=== PATIENT | male | born 1945 | race Caucasian/White ===

== ENCOUNTER → 2016-06-26 | Outpatient (CLI) | payer MEDICARE, OTHER ==
[~2016-06-26] MED LIST: ALLOPURINOL300 MG PO; AMOXICILLIN500 MG PO; ASPIRIN EC81 MG PO; COLACE100 MG PO; DILAUDID 2MG(HYD2 MG PO; LOVENOX 4040 MG/0.4 SUB-Q; MIRALAX17 GM PO; NAPROSYN500 MG PO; OXYCONTIN EXTEN10 MG PO; PRINIVIL10 MG PO; ROXICODONE 5MG (5 MG PO; TYLENOL EXTRA500 MG PO; ULTRAM50 MG PO; VALIUM5 MG PO; XARELTO10 MG PO; ZYLOPRIM100 MG PO
== END | disposition disaster alternative care site (69) ==
LOC: GRAD 10:23
DX: M19.071 Primary osteoarthritis, right ankle and foot (principal); M25.571 Pain in right ankle and joints of right foot

== ENCOUNTER 2016-09-08 10:00 | Inpatient (IN) | payer MEDICARE, OTHER ==
[~2016-09-08] VITALS: Ht 180.3 cm; Wt 134.9 kg
--- NOTE | ~2016-09-08 | DS ---
PATIENT'S NAME: TOM POLK [facility] [place] AGE: 71 Y [address] 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 SECONDARY DIAGNOSES: History of atrial fibrillation, obstructive sleep apnea, obesity, history of gout, hyperlipidemia. PROCEDURE: The patient had a right total ankle arthroplasty done by Dr. Warren on September 30, 2016 and a gastrocnemius recession. HISTORY: The patient is a 71-year-old male who presents to the office with advanced right ankle degenerative joint disease and associated severely compromised activities of daily living. The patient has decided to proceed with total ankle arthroplasty after having been thoroughly counseled regarding the risks, benefits, limitation, alternatives. Please refer to the outpatient clinical notes and admission history and physical for the patient. The patient underwent right total ankle arthroplasty on September 30, 2016 without complications. A spinal anesthesia and peripheral nerve blocks were utilized. The patient received 24 hours of perioperative prophylactic antibiotics and remained hemodynamically stable, neurovascularly intact throughout the entire hospital course. The postoperative prophylactic deep vein thrombosis consisted of Lovenox, early mobilization, and pneumatic compression devices. The patient did work with physical therapy on transfer training due to nonweightbearing status of his operative extremity. The patient progressed well in the postoperative recovery and on October 02, 2016, the patient was determined to be stable for discharge. DISPOSITION: To home. DISCHARGE ACTIVITY: The patient is to be nonweightbearing on the operative extremity. He is to keep the extremity elevated, icing frequently throughout the day. The splint of the operative extremity is to be kept clean and dry. Dr. Warren is to be notified immediately if there is any increased pain, fevers, chills, erythema, or drainage. DISCHARGE MEDICATIONS: Medications on hold: Naproxen while taking Lovenox. New medications: 1. Acetaminophen 1000 mg p.o. every 6 hours as needed for pain. 2. Colace 100 mg p.o. b.i.d. p.r.n. constipation. PATIENT'S NAME: TOM POLK [facility] [place] AGE: 71 Y [address] ROOM: [address] [address] LOCATION: [facility] ADMIT DATE: 09/30/2016 Discharge Summary DISCHARGE DATE: 10/02/2016 FAMILY PHYSICIAN: ANTONINA DAVIS MD ATTENDING PHYSICIAN: Kuldeep Warren 3. Lovenox 40 mg subcu daily. 4. MiraLax 17 g p.o. b.i.d. p.r.n. constipation. 5. Oxycodone ER 10 mg p.o. b.i.d. 6. Oxycodone 5 mg 1-2 tabs every 4 hours as needed for pain. Otherwise, the patient was instructed to continue his preadmission medications as instructed by his internal medicine physician. FOLLOWUP: The patient is to follow up in Dr. Warren' office on October 16, 2016 at 11:00 a.m. for initial postoperative evaluations with x-rays and for staple removal. GORGE HORTA PA-C FOR KULDEEP WARREN MD TJW/modl /[id number] d: 10/16/16 0636 t: 10/19/16 1432, DISCHARGE SUMMARY
--- NOTE | ~2016-09-08 | CON ---
PATIENT'S NAME: TOM POLK [facility] AGE: 71 Y [address] ROOM: [address] [address] LOCATION: [facility] ADMIT DATE: 09/30/2016 OR/Procedure Report DISCHARGE DATE: 10/02/2016 FAMILY PHYSICIAN: ANTONINA DAVIS MD ATTENDING PHYSICIAN: Roddy Hilton DATE OF SURGERY: 09/30/2016 REFERRING PHYSICIAN: Darren Agosto MD ADDENDUM: PREOPERATIVE DIAGNOSES: 1. 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 2. Gastrocnemius equinus/shortened Achilles tendon. POSTOPERATIVE DIAGNOSES: 1. 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 2. Gastrocnemius equinus/shortened Achilles tendon. MD MORRIS STEVENSD/modl /[id number] d: 10/09/16 1104 t: 10/09/16 1215, CONSULTATION REPORT
--- NOTE | ~2016-09-08 | OR ---
PATIENT'S NAME: TOM KEVIN [facility] AGE: 71 Y [address] ROOM: [place] [address] LOCATION: [facility] ADMIT DATE: 09/30/2016 OR/Procedure Report DISCHARGE DATE: FAMILY PHYSICIAN: ANTONINA DAVIS MD ATTENDING PHYSICIAN: KULDEEP WARREN SURGEON: Kuldeep Warren MD LUNCHROOM ATTENDANT: Jose Valenzuela PA-C. 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 PROCEDURE: 1. Right total ankle arthroplasty. 2. Right gastrocnemius recession procedure. 3. Use of intraoperative fluoroscopy, less than 1 hour. ANESTHESIA: Spinal anesthesia with peripheral nerve blocks. FLUID: See anesthesia report. ESTIMATED BLOOD LOSS: Minimal. TOURNIQUET: Right proximal thigh 250 mmHg. SPECIMEN: None. COMPLICATIONS: None. DISPOSITION: Stable in PACU. COUNTS: All counts were correct. IMPLANTS: Maddy STAR right total ankle arthroplasty. Size extra- large tibia base plate, size small talar component and size 8 polyethylene liner. INDICATIONS: Mr. Kevin is a pleasant 71-year-old gentleman, who underwent the noted procedure above. The risks, benefits, and alternatives pursuing surgical intervention were discussed with the patient in detail. I have marked the patient's right lower extremity indicating the correct surgical site. Anesthesia was consulted for their perioperative evaluation of the patient. PATIENT'S NAME: TOM KEVIN [facility] AGE: 71 Y [address] ROOM: [place] [address] LOCATION: [facility] ADMIT DATE: 09/30/2016 OR/Procedure Report DISCHARGE DATE: FAMILY PHYSICIAN: ANTONINA DAVIS MD ATTENDING PHYSICIAN: KULDEEP WARREN DESCRIPTION OF PROCEDURE: The patient was brought from the holding area to the operating room. A time-out was performed. Anesthesia was administered. Ancef antibiotic was administered for prophylaxis. The right lower extremity was then prepped and draped in a sterile fashion. I turned my attention the right lower extremity. Final time-out was performed. An Esmarch was used to exsanguinate the limb. The tourniquet was inflated to 250 mmHg. I turned my attention to the medial aspect of the leg. A longitudinal incision was made through skin and subcutaneous tissue, and muscle fascia down to the gastrocnemius aponeurosis. I performed a gastrocnemius recession procedure. I achieved good excursion at the ankle. The wound was then copiously irrigated with normal sterile saline solution and closed in layers. I then turned my attention to the anterior aspect of the ankle. I began with an anterior incision through skin and subcutaneous tissue. I tagged the extensor retinaculum as I sharply dissected through. I then isolated the ankle joint capsule. I excised the synovitis and osteophytes with a rongeur. I then introduced intraoperative fluoroscopy. I identified the joint. I placed a pin into the tibial tubercle. I placed my distal tibia jig. I made my distal tibia cut. I then turned my attention to the talus and made my talus cuts. I then tried a trial component tree to determine size. The wound was then copiously irrigated with normal sterile saline solution. I used press-fit components of the both the tibia and talus. The final implants were placed. A trial polyethylene liner was used and I decided that a size eight provided good medial and lateral stability. Notably, talar component despite the appropriate position of the jig, I should take more bone off the medial talus, which lateralized the talus component. Once the final implants were in place, there was excellent tracking and no lift-off. There were no restrictions in the medial lateral gutters. The final polyethylene liner size 8 was placed. The ankle was taken through range of motion. It was copiously irrigated with a normal sterile saline solution. Final fluoroscopic images reveal evidence of a well-aligned and well-fixed right total ankle arthroplasty. The wound was then closed in layers beginning with 0 Vicryl suture to approximate the extensor retinaculum, followed by 2-0 Vicryl suture to approximate the subcutaneous tissue and wm for skin. Sterile dressings placed in form of Xeroform, followed by 4x4, and Webril. A tourniquet was let down. The toes reperfused. PATIENT'S NAME: TOM KEVIN [facility] AGE: 71 Y [address] ROOM: [address] [address] LOCATION: N ADMIT DATE: 09/30/2016 OR/Procedure Report DISCHARGE DATE: FAMILY PHYSICIAN: ANTONINA DAVIS MD ATTENDING PHYSICIAN: KULDEEP WARREN The patient was then placed into a well-padded short-leg splint with the ankle in neutral dorsiflexion. There were no intraoperative complications noted. Of note, my PA, Jose Valenzuela PA-C, played an integral role in the intraoperative care of this patient. This included preoperative positioning, intraoperative expert retraction, and closing and splinting functions. IMPRESSION: The patient is status post the noted procedures above. PLAN: The patient will be nonweightbearing on the right lower extremity for 6 to 8 weeks. He has been instructed to rest, ice, and elevate the extremity going forward. Pain control informed Percocet and IV morphine as needed for pain. Postoperative antibiotics in the form of Ancef. DVT prophylaxis in the form of Lovenox. The hospitalist will be consulted for management of patient's concomitant medical comorbidities. He has peripheral nerve blocks and placed for pain control, as well. I will continue to monitor the patient closely in the postoperative period. MD ELE STEVENS/lel /[id number] d: 09/30/16 1221 t: 09/30/16 1703, OPERATIVE SUMMARY
[~2016-09-08 10:00] MED LIST changes: -AMOXICILLIN500 MG PO; -LOVENOX 4040 MG/0.4 SUB-Q; -OXYCONTIN EXTEN10 MG PO; -PRINIVIL10 MG PO
[2016-09-08] MEDS ORDERED: PRINIVIL10 MG PO (11:29)
[2016-09-08] MEDS ORDERED: AMOXICILLIN500 MG PO (11:30)
[2016-09-30] MEDS ORDERED: ALLOPURINOL300 MG PO (07:52)
--- NOTE | 2016-09-30 19:40 | NUR ---
Significant Event: Patient alert and oriented X 3. Room air. Refuses to use C-pap at night. SBP 130's to 160's. HR 60-80. Total ankle closed with wm. Dressing xeroform, fluff cast padding, plaster splint and jimbo wrap. Dressing below knee clean, dry and intact. Patient did not complain of any pain. Patient has been up to the recliner with PT, walker and gait belt. No weight bearing to right leg. Patient is able to wiggle toes, good sensaiton and good cap refill. Pleasant and cooperative with cares. Follow up:
--- NOTE | 2016-10-01 04:45 | NUR ---
Significant Event: A&O X3. Vital signs stable. On RA. Cast splint to RLE is CDI. Ice. Elevated. Normal sensation to toes, can wiggle toes and has good cap refill. Numbness to area below the knee to the cast splint. Up to chair at bedside with 1 assist, gait belt and walker. Scooter at bedside. IV SL'd. Rates pain 5-8/10. MS given X2 last at 0257. Roxicodone last at 0258. Valium at 0018. Taking PO well. NWB to RLE. Follow up:
--- NOTE | 2016-10-01 09:16 | NUR ---
Patient attended preop class. Reports she lives in [place] in one-level home. 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 Reports will have help from Cammie Rodriguez at home. No anticipated needs. Will follow.
--- NOTE | 2016-10-01 12:32 | NUR ---
Received referral to see pt about scooter. Introduced self and care management services to patient. Lives in [place] alone. Has a scooter in room, says it is his. Plans on going home on discharge, has walker and shower chair. Denies needs. Will follow.
--- NOTE | 2016-10-01 17:31 | NUR ---
Pt alert, oriented. This afternoon has been forgetful, possibly from pain meds. CSM WNL to right lower leg but some numbness below knee where mepilex dressing is. moves toes well. ice to ankle and Rt leg elevated all time. Pt ambulated in [place] with scooter with PT x2. Up recliner rest of shift. Pt started on mucinex for congestion. Pt uses IS at 1150. He had pain get up to a 10 mid morning. down to 6 now and more tolerable. He had morphine x3, IV dilaudid 0.3 mg x1, routine tylenol, and roxicodone x3, last at 1700. Used 10 mg roxicodone at one time. also had valium po at 1200. Pt is high risk NIXON
--- NOTE | 2016-10-02 05:10 | NUR ---
Pt AOx3. Ankle elevated with ice @ all times. CSM's intact. Dressing C/D/I. Pt worries about breakthrough pain. Pt had 8/10 pain once at 0200, pt received 2mg iv morphine for that, which helped. Pt described it as "burning". Pt slept between pain medication administrations. Pt received Roxicodone 5mg last at 0350. Pt had 5mg po valium once at 2120. VSS. Pt NWB to right lower ext. Pt up with scooter.
[2016-10-02] MEDS ORDERED: TYLENOL EXTRA500 MG PO (14:08)
[2016-10-02] MEDS ORDERED: COLACE100 MG PO (14:10)
[2016-10-02] MEDS ORDERED: LOVENOX 4040 MG/0.4 SUB-Q (14:11)
[2016-10-02] MEDS ORDERED: MIRALAX17 GM PO (14:14)
[2016-10-02] MEDS ORDERED: OXYCONTIN EXTEN10 MG PO (14:15)
[2016-10-02] MEDS ORDERED: ROXICODONE 5MG (5 MG PO (14:17)
--- NOTE | 2016-10-02 16:10 | NUR ---
Pt discharged to go home with daughter assistance. He is alert, oriented, sleepy from pain meds but arouses easily. Takes roxicodone and started on oxycontin this morning. Pt states pain Rt ankle better than yesterday. Rates 5-6 today. Pt has normal CSM Rt toes and some edema. Normal pedal pulse felt top of foot. Dressing dry and intact lower leg and mepilex to knee covered with tegaderm. Pt had shower today with bag over lower leg. Pt ambulates with GERALD martins on Rt with one assist. Pt uses IS at 3000. Pt and daughter verbalize understanding of home instructions including lovenox injections. Pt discharged per wheelchair in stable condition to home.
== END 2016-10-02 15:45 | disposition disaster alternative care site (69) | DRG 470 ==
LOC: G3N 09-30 05:49
PROVIDERS: ADMIT Orthopaedic Surgery Adult Reconstructive Orthopaedic Surgery
DX: M19.071 Primary osteoarthritis, right ankle and foot (principal); I49.5 Sick sinus syndrome; I48.0 Paroxysmal atrial fibrillation; Z68.41 Body mass index [BMI] 40.0-44.9, adult; N18.3 Chronic kidney disease, stage 3 (moderate); E66.01 Morbid (severe) obesity due to excess calories; E78.5 Hyperlipidemia, unspecified; E87.6 Hypokalemia; G47.33 Obstructive sleep apnea (adult) (pediatric); I12.9 Hypertensive chronic kidney disease with stage 1 through stage 4 chronic kidney disease, or unspecified chronic kidney disease; Z87.442 Personal history of urinary calculi; Z95.0 Presence of cardiac pacemaker
CPT/HCPCS: C1776; J0690; J1100; J1170; J1650; J2001; J2250; J2270; J7050; J7120

== ENCOUNTER → 2016-09-10 | Outpatient (CLI) | payer MEDICARE, OTHER ==
[~2016-09-10] MED LIST changes: +AMOXICILLIN500 MG PO; +LOVENOX 4040 MG/0.4 SUB-Q; +OXYCONTIN EXTEN10 MG PO; +PRINIVIL10 MG PO
== END | disposition disaster alternative care site (69) ==
LOC: GNJRC 10:12
DX: Z01.812 Encounter for preprocedural laboratory examination (principal)